=== PATIENT | female | born 1960 | race Caucasian/White ===

== ENCOUNTER → 2016-10-24 | Outpatient (CLI) | payer OTHER | LOC: FIMAGING 11:27 | PROVIDERS: ATTEND Internal Medicine | DX: Z13.820 Encounter for screening for osteoporosis (principal); M85.80 Other specified disorders of bone density and structure, unspecified site; Z79.52 Long term (current) use of systemic steroids; Z78.0 Asymptomatic menopausal state; Z82.62 Family history of osteoporosis ==

== ENCOUNTER 2016-11-16 20:17 | Emergency (ER) | payer OTHER ==
[2016-11-16] MEDS ORDERED: IPRATROPIUM/ALBUTEROL 3 ML DEYVIAL ONE (20:39)
[2016-11-16] MEDS ORDERED: IPRATROPIUM/ALBUTEROL 3 ML DEYVIAL IH ONE ×2 (20:48→21:36)
[2016-11-16] MEDS ORDERED: methylPREDNISolone SOD SUCC 125 MG/2 ML VIAL IVP ONE (21:36)
[2016-11-16 21:38] LABS: % IMMATURE GRANULYOCYTES 0.3 % (0.0-1.1); ABSOLUTE IMMATURE GRANULOCYTES 0.03 10^3/uL (0.00-0.10); ADD DIFF? NO; ADD MORPH? NO; ADD SCAN? NO; ATYPICAL LYMPHOCYTE FLAG 30 (0-99); FRAGMENT RBC FLAG 0 (0-99); HEMATOCRIT 41.8 % (38.0-47.0); HEMOGLOBIN 14.4 g/dL (12.6-16.3); LEFT SHIFT FLG 0 (0-99); LIPEMIA HEMOLYSIS FLAG 90 (0-99); MEAN CELL HEMOGLOBIN 32.1 pg (27.9-34.1); MEAN CELL HEMOGLOBIN CONCENTR. 34.4 g/dL (32.4-36.7); MEAN CELL VOLUME 93.3 fL (81.5-99.8); PLATELET CLUMPS FLAG 0 (0-99); PLATELET COUNT 225 10^3/uL (150-400); RED BLOOD CELL COUNT 4.48 10^6/uL (4.18-5.33); RED CELL DISTRIBUTION WIDTH 13.3 % (11.5-15.2)
--- NOTE | 2016-11-16 21:42 | EDPHY ---
H & P Time Seen by Provider: 11/16/16 20:59 HPI/ROS: HPI Cough, shortness of breath. 56-year-old female by private vehicle with her . She has a history of rheumatoid arthritis. She has chronically been on steroids but was recently weaned off of the steroids 1 week ago. She developed a cough 3 days ago. It has progressed. She has had some production of greenish sputum. She reports that today her cough was worse and she was feeling short of breath and wheezy. She also describes having muscle aches and joint aches. Denies fever. States that she has some chest discomfort with cough only. ROS: Constitutional: No fever, no chills. No weakness. Eyes: No discharge. No changes in vision. ENT: No sore throat. No nasal congestion or rhinorrhea. Respiratory: As above. Cardiac: No chest pain, no palpitations. Gastrointestinal: No abdominal pain, no vomiting, no diarrhea. Genitourinary: No hematuria. No dysuria or increased frequency with urination. Musculoskeletal: No back pain. No neck pain. No myalgias or arthralgias. Skin: No rashes. Neurological: No headache. No focal weakness or altered sensation. Past medical history: Rheumatoid arthritis. As above. Social history: Nonsmoker. Here with her . No alcohol. Physical Exam: General Appearance: Alert, mildly anxious anxious. This patient is responding to questions appropriately and in full sentences. This patient appears well- hydrated and well-nourished. Eyes: Pupils equal and round no pallor or injection. No lid edema, erythema or injection. Respiratory: There are no retractions, lungs are clear to auscultation anteriorly with good air movement bilaterally. She does have some scant wheezing on exhalation lower lung matute bilaterally. No tachypnea on my exam. Cardiovascular: Regular rate and rhythm. No murmur. Neurological: Motor sensory function is grossly intact. Cranial nerves are normal. Gait is normal. Skin: Warm and dry, no rashes. Musculoskeletal: Neck is supple and nontender. Extremities are symmetrical. No palpable cords. Negative Paulino sign. No significant edema. All joints range without pain or impingement. Psychiatric: No agitation. No depression. Database: EKG: Imaging: Chest x-ray PA and lateral; the cardiac mediastinal silhouette is unremarkable. No evidence of infiltrate or pneumothorax. Bronchitis noted. Otherwise, no acute cardiopulmonary disease process noted. Interpreted by me. Procedures: Emergency department course: On the patient's initial arrival she received an albuterol/Atrovent nebulizer treatment. Chest x-ray was obtained through triage. After my evaluation an IV was placed. She was given 125 mg of IV Solu-Medrol. She was given an additional albuterol/Atrovent nebulizer treatment. 10:05 p.m., patient re-evaluated. She is feeling much better at this time. She reports good relief from the nebulized medications. She has had 125 mg of IV Solu-Medrol. Repeat pulmonary exam, she is clear to auscultation bilaterally with good air movement. No wheezing. No tachypnea. No restrictions. Results of her chest x-ray were discussed with her and her . Diagnosis of bronchitis complicated by reactive airway disease discussed. She was started on azithromycin 500 mg PO given in the ED. She feels comfortable going home with her . She will follow up with her primary care physician in 1-2 days for re-evaluation. She has an appointment with her lamp mechanic on November 24. I will prescribe her a short course of prednisone with taper. Return to emergency department precautions were thoroughly reviewed with the 2 of them. All of their questions were answered. The patient was discharged in good condition. Differential Diagnosis: The differential diagnosis on this patient includes but is not limited to bronchitis, reactive airway disease, early pneumonia. Congestive heart failure , acute coronary syndrome, pulmonary embolism unlikely. This represents a partial list of diagnoses considered. These considerations are based on history , physical exam, past history, reassessment and diagnostic testing. Smoking Status: Never smoked Constitutional: Initial Vital Signs Temperature (C) 37.2 C 11/16/16 20:18 Heart Rate 101 H 11/16/16 20:18 Respiratory Rate 16 11/16/16 20:18 Blood Pressure 136/88 H 11/16/16 20:18 O2 Sat (%) 96 11/16/16 20:18 O2 Delivery Mode Room Air Allergies/Adverse Reactions: No Known Allergies Allergy (Unverified 11/16/16 20:22) Home Medications: Medication Instructions Recorded Azithromycin [Zithromax] 250 mg PO DAILY #6 tab 11/16/16 Methotrexate Sodium [Rheumatrex] 10 mg PO 11/16/16 predniSONE [prednisone 20mg (RX)] 60 mg PO DAILY #9 tab 11/16/16 Medical Decision Making - Diagnostics Imaging Results: Imaging Impressions Chest X-Ray 11/16/16 20:45 Impression: Normal chest x-ray. - Data Points Laboratory Results: Laboratory Results 11/16/16 21:32 11/16/16 21:32 11/16/16 11/16/16 21:32 21:32 WBC 9.11 10^3/uL 10^3/uL (3.80-9.50) RBC 4.48 10^6/uL 10^6/uL (4.18-5.33) Hgb 14.4 g/dL g/dL (12.6-16.3) Hct 41.8 % % (38.0-47.0) MCV 93.3 fL fL (81.5-99.8) MCH 32.1 pg pg (27.9-34.1) MCHC 34.4 g/dL g/dL (32.4-36.7) RDW 13.3 % % (11.5-15.2) Plt Count 225 10^3/uL 10^3/uL (150-400) MPV 9.0 fL fL (8.7-11.7) Neut % (Auto) 68.8 % % (39.3-74.2) Lymph % (Auto) 18.0 % % (15.0-45.0) [place] % (Auto) 11.5 % % (4.5-13.0) Eos % (Auto) 1.1 % % (0.6-7.6) Baso % (Auto) 0.3 % % (0.3-1.7) Nucleat RBC Rel Count 0.0 % % (0.0-0.2) Absolute Neuts (auto) 6.26 10^3/uL 10^3/uL (1.70-6.50) Absolute Lymphs (auto) 1.64 10^3/uL 10^3/uL (1.00-3.00) Absolute Monos (auto) 1.05 10^3/uL H 10^3/uL (0.30-0.80) Absolute Eos (auto) 0.10 10^3/uL 10^3/uL (0.03-0.40) Absolute Basos (auto) 0.03 10^3/uL 10^3/uL (0.02-0.10) Absolute Nucleated RBC 0.00 10^3/uL 10^3/uL (0-0.01) Immature Gran % 0.3 % % (0.0-1.1) Immature Gran # 0.03 10^3/uL 10^3/uL (0.00-0.10) Sodium 136 mEq/L mEq/L (134-144) Potassium 3.5 mEq/L mEq/L (3.5-5.2) Chloride 104 mEq/L mEq/L (97-110) Carbon Dioxide 20 mEq/l L mEq/l (22-31) Anion Gap 12 mEq/L mEq/L (8-16) BUN 6 mg/dL L mg/dL (7-23) Creatinine 0.8 mg/dL mg/dL (0.6-1.0) Estimated GFR > 60 Glucose 99 mg/dL mg/dL (70-100) Calcium 9.0 mg/dL mg/dL (8.5-10.4) Creatine Kinase 45 IU/L IU/L (0-156) CK-MB (CK-2) Fraction 0.27 ng/mL ng/mL (0.00-3.19) Troponin I < 0.012 ng/mL ng/mL (0.000-0.034) NT-Pro-B Natriuret Pep 27 pg/mL pg/mL (0-125) Medications Given: Discontinued Medications Albuterol Sulfate (Proventil Inh Prepack) 1 mdi TAKEHOME EDNOW ONE Stop: 11/16/16 22:06 Last Admin: 11/16/16 22:22 Dose: 1 mdi Albuterol/Ipratropium (Duoneb) 3 ml IH EDNOW ONE Stop: 11/16/16 20:49 Last Admin: 11/16/16 21:14 Dose: 3 ml Albuterol/Ipratropium (Duoneb) 3 ml IH EDNOW ONE Stop: 11/16/16 21:37 Last Admin: 11/16/16 21:49 Dose: 3 ml Azithromycin (Zithromax) 500 mg PO EDNOW ONE PRN Reason: Protocol Stop: 11/16/16 22:06 Last Admin: 11/16/16 22:23 Dose: 500 mg Methylprednisolone Sodium Succinate (Solu-Medrol) 125 mg IVP EDNOW ONE Stop: 11/16/16 21:37 Last Admin: 11/16/16 21:49 Dose: 125 mg Departure - Departure Disposition: Home, Routine, Self-Care Clinical Impression: Bronchitis Condition: Good Instructions: Albuterol (By breathing), Prednisone (By mouth), Azithromycin ( By mouth), Acute Bronchitis (ED) Additional Instructions: Read and follow provided instructions. Follow-up with your primary care physician in 1-2 days for re-evaluation as discussed. Take medication as prescribed. Albuterol meter dose inhaler: 1-2 puffs every 2-4 hours as needed for cough, shortness of breath. Return to the emergency department for worsening cough, wheezing, shortness of breath, fever or other serious concerns. Referrals: UNKNOWN,PCP [Other] - As per Instructions Prescriptions: Azithromycin [Zithromax] 250 mg PO DAILY #6 tab predniSONE [prednisone 20mg (RX)] 60 mg PO DAILY #9 tab
[2016-11-16 21:47] LABS: ANION GAP 12 mEq/L (8-16); CARBON DIOXIDE 20 mEq/l (22-31); CHLORIDE 104 mEq/L (97-110); CREATININE 0.8 mg/dL (0.6-1.0); GLOMERULAR FILTRATION RATE > 60; GLUCOSE 99 mg/dL (70-100); POTASSIUM 3.5 mEq/L (3.5-5.2); SODIUM 136 mEq/L (134-144)
[2016-11-16 22:00] LABS: CREATINE KINASE-MB FRACTION 0.27 ng/mL (0.00-3.19); TROPONIN I < 0.012 ng/mL (0.000-0.034)
[2016-11-16] MEDS ORDERED: ALBUTEROL INH PREPACK MDI TAKEHOME ONE (22:05)
[2016-11-16] MEDS ORDERED: AZITHROMYCIN 250 MG TAB PO ONE (22:05)
[2016-11-16 22:41] VITALS: RESP 18
[2016-11-16 22:42] VITALS: BP 122/70; PULSE 98; TEMP 98.6; O2SAT 94
== END 2016-11-16 22:43 | disposition home or self-care (01) ==
DX: J20.9 Acute bronchitis, unspecified (principal)
CPT/HCPCS: 96374

== ENCOUNTER → 2016-12-02 | Outpatient (CLI) | payer OTHER | LOC: FIMAGING 09:30 | PROVIDERS: ATTEND Internal Medicine | DX: Z12.31 Encounter for screening mammogram for malignant neoplasm of breast (principal) | CPT/HCPCS: G0202 ==

== ENCOUNTER 2017-03-10 12:27 | Emergency (ER) | payer OTHER ==
[2017-03-10 12:36] VITALS: BP 138/90; PULSE 79; RESP 16; TEMP 97.2; O2SAT 97
--- NOTE | 2017-03-10 13:16 | EDPHY ---
H & P Time Seen by Provider: 03/10/17 12:52 HPI/ROS: CHIEF COMPLAINT: Right ankle injury HISTORY OF PRESENT ILLNESS: 56-year-old male presents to the emergency department by private vehicle complaining of pain in her right ankle. The patient was playing pickle ball just prior to arrival and somehow rolled her right ankle. She complains of isolated pain to the right ankle. She denies hitting her head or losing consciousness. Denies any other trauma or injury. ROS: Denies numbness or tingling in her toes, pain in her right calf or right knee. Past Medical/Surgical History: Rheumatoid arthritis, Sjogren's syndrome Social History: and lives in [place] Smoking Status: Never smoked Physical Exam: On examination there is obvious swelling noted to the lateral aspect of her right ankle overlying distal fibula. She has reproducible pain with palpation over the lateral malleolus. Nontender over the medial malleolus. Limited dorsiflexion secondary to pain. She has full plantar flexion. Difficult to assess ligament stability given her pain and swelling. Achilles tendon is intact. Calf is nontender. Full range of motion of her right knee. Full range of motion of the left lower extremity as well. No abrasion. Normal sensation to light touch with normal 2 point discrimination. Constitutional: Initial Vital Signs Temperature (C) 36.2 C 03/10/17 12:32 Heart Rate 79 03/10/17 12:32 Respiratory Rate 16 03/10/17 12:32 Blood Pressure 138/90 H 03/10/17 12:32 O2 Sat (%) 97 03/10/17 12:32 O2 Delivery Mode Room Air Allergies/Adverse Reactions: No Known Allergies Allergy (Unverified 11/16/16 20:22) Home Medications: Medication Instructions Recorded Azithromycin [Zithromax] 250 mg PO DAILY #6 tab 11/16/16 Methotrexate Sodium [Rheumatrex] 10 mg PO 11/16/16 predniSONE [prednisone 20mg (RX)] 60 mg PO DAILY #9 tab 11/16/16 MDM/Departure - MDM Imaging Results: Imaging Impressions Ankle X-Ray 03/10/17 12:36 Impression: Distal fibular fracture. Imaging: I viewed and interpreted images myself Procedures: Patient was placed in a Loyd boot and given crutches and examined post application in good placement with normal CREDIT MANAGER. ED Course/Re-evaluation: 56-year-old female presents to the emergency department with right ankle injury. X-rays reveal distal fibular fracture. She was placed in a Loyd boot and given crutches and given orthopedic referral. - Depart Disposition: Home, Routine, Self-Care Clinical Impression: Ankle fracture, right Qualifiers: Encounter type: initial encounter Fracture type: closed Qualified Code(s): S82.891A - Other fracture of right lower leg, initial encounter for closed fracture Condition: Good Instructions: Ankle Fracture (ED) Additional Instructions: Loyd boot for comfort and support. Weightbear as tolerated or use crutches. Ibuprofen 600 mg every 8 hr as needed for pain. Follow up with orthopedic surgeon next week to recheck. Referrals: Hilario Nolan MD [Primary Care Provider] - As per Instructions Joshua Iverson MD [Medical Doctor] - 5-7 days, call for appt. (Orthopedic surgeon on-call)
== END 2017-03-10 13:33 | disposition home or self-care (01) ==
DX: S82.891A Other fracture of right lower leg, initial encounter for closed fracture (principal); X50.9XXA Other and unspecified overexertion or strenuous movements or postures, initial encounter; Y99.8 Other external cause status; Y93.73 Activity, racquet and hand sports

== ENCOUNTER → 2017-12-04 | Outpatient (CLI) | payer OTHER | LOC: FIMAGING 07:54 | PROVIDERS: ATTEND Internal Medicine | DX: Z12.31 Encounter for screening mammogram for malignant neoplasm of breast (principal) ==